=== PATIENT | female | born 1945 | race Caucasian/White ===

== ENCOUNTER → 2017-02-01 | Outpatient (CLI) | payer MEDICARE, BC ==
--- NOTE | 2017-02-01 15:59 | US ---
EXAM DESCRIPTION: Thyroid: Ultrasound CLINICAL HISTORY: ABNORMAL RESULTS OF THYROID FUNCTION STUDIES COMPARISON: None. TECHNIQUE: Transcutaneous scannin-dimensional and Doppler modes. FINDINGS: Right lobe dimensions 8.1 x 5.1 x 6.7 cm. Heterogeneous echoes. Nodule in the mid lobe measures 2.1 cm transverse and 2.2 x 1.7 cm sagittal plane. Nonvascular. Decreased vascularity throughout the lobe. No microcalcifications. Contour right lobe minimally lobular. Juxta-thyroid masses/fluid: none. Left lobe dimensions 6.0 x 3.7 x 2.7 cm. Heterogeneous echoes. Complex nodule in the lower lobe measuring 1.9 cm transverse and 1.8 x 1.6 cm in the sagittal plane. Nonvascular. Large nodule in the upper and midpole. Nodule is not vascular. Decreased vascularity in the left lobe. No microcalcifications. Contour left lobe minimally lobulated. Juxta-thyroid masses/fluid: none. Isthmus thickness 15.3 mm. Heterogeneous echoes. Complex nodule measuring 3.3 cm transverse and 2.7 cm AP; nodule is not vascular. Decreased vascularity. Contour smooth. IMPRESSION: 1. Markedly enlarged thyroid gland involving both lobes and the isthmus but particularly the right lobe. 2. Multiple nodules in the bilateral lobes and isthmus. The three largest nodules meet the imaging criteria for fine needle aspiration sampling according to RP best practice guidelines, adopted from ACR white paper and [place] 3-tiered guidelines on incidental thyroid nodules. Please see below.* 3. No discrete solid masses, cystic masses, or edema in the surrounding soft tissues. *Further evaluation by thyroid US recommended for: -Solitary incidental thyroid nodule (ITN) with high risk imaging features (locally invasive nodule or suspicious lymph nodes) -Solitary ITN of any size in pediatric patients <= 18 years of age -Solitary ITN >= 1 cm in axial plane in patients between 18 and 35 years of age -Solitary ITN >= 1.5 cm in axial plane in patients >= 35 years of age -Heterogeneous enlarged thyroid gland -ITN avid on FDG-PET or other nuclear medicine (MIBI and octreotide) scans. FNA biopsy is also recommended for PET avid nodules. 2.No f/u imaging is recommended for ITN's not meeting the above criteria. 3.For multiple thyroid nodules, the above recommendations for solitary ITN are to be applied to the largest nodule. 4.No US or f/u recommended for ITN's without high risk features in patients with limited life expectancy or significant co-morbidities, unless clinically warranted. 5.These recommendations do not apply to patients w/ increased risk for thyroid cancer or patients with symptomatic thyroid disease. Recommendations for f/u of Incidental Thyroid Nodules (ITN) found on CT, MR, NM and Extrathyroidal US are based upon the ACR white paper and [place] 3-tiered system for managing ITN's: J [facility] 2015 Feb;12(2): 143-50 Electronically signed by: Arsen Alejandre MD 02/01/2017 3:58 PM CDT
== END | disposition home or self-care (01) ==
LOC: US 09:54
PROVIDERS: ATTEND Family Medicine
DX: R94.6 Abnormal results of thyroid function studies (principal)

== ENCOUNTER → 2017-10-18 | Outpatient (CLI) | payer MEDICARE, BC | LOC: GMAJS 17:22 | PROVIDERS: ATTEND Physician Assistant | DX: R30.0 Dysuria (principal) ==

== ENCOUNTER 2020-03-10 12:39 | Emergency (ER) | payer MEDICARE ==
[2020-03-10] MEDS ORDERED: LIDOCAINE 1% 10 ML VIAL INJ ONE ×2 (12:53→13:16)
[2020-03-10] MEDS ORDERED: CHLORHEXIDINE GLUCONATE 4 % 15 ML UD TOP ONE (12:54)
[2020-03-10] MEDS ORDERED: BUPIVACAINE 0.25% INJ 30 ML VIAL INJ ONE (12:59)
[2020-03-10] MEDS ORDERED: TETANUS,DIPHTHERIA,PERTUSSIS 1 EA SYG IM ONE (12:59)
--- NOTE | 2020-03-10 13:03 | ED.PDOC ---
History of Present Illness - General Time Seen by Provider: 03/10/20 12:55 Source: patient, RN notes reviewed, Vital Signs reviewed, family Exam Limitations: no limitations - History of Present Illness Initial Comments: Pt presents to ED for left hand injury. Just [employer], she was closing a sliding glass door and the fram shut on her left 3rd and 4th fingers. Has laceration to palmar side of 3rd digit. Denies any other injuries. Unsure of last tetanus shot. Allergies/Adverse Reactions: Allergies NO KNOWN ALLERGY Allergy (Verified 03/10/20 13:07) Home Medications: Ambulatory Orders metFORMIN HCL [Glucophage] 500 mg PO BIDFD #60 tab 01/31/16 Review of Systems - Review of Systems Constitutional: Denies: fever Musculoskeletal: Denies: back pain, neck pain Skin: States: see HPI All other Systems: Reviewed and Negative Past Medical History (General) - Patient Medical History Hx Seizures: No Hx Stroke: No Hx of COPD: No Hx Congestive Heart Failure: No Hx Pacemaker: No Hx Hypertension: No Hx Diabetes: No Hx MRSA: No Family Medical History - Family History Mother Family History: Unknown Physical Exam - Physical Exam General Appearance: Alert, Comfortable, No apparent distress Comments: There is a 2 cm laceration to palmar side of left 3rd digit with no active bleeding. TTP left 4rd and 4th digits to middle and distal phalynxs. No nail injury. Cap refill < 2 seconds. Progress - Progress Progress: 03/10/20 13:27 Presents to the ED with left hand injury after getting it closed in a door. No fracture or dislocation seen on imaging. Wound was irrigated extensively. Patient refused any numbing medicine so 1 suture was placed to approximate the wound. Nonadherent dressing was applied. Discussed with patient to keep wound clean and dry and will return in 12 to 14 days for suture removal. Strict return precautions given. - Results/Orders Results/Orders: LEFT HAND CLINICAL HISTORY: 75 years Female trauma COMPARISON: None TECHNIQUE: Three images of the left hand were obtained. FINDINGS: Deformity with fragmentation of navicular bone. Well circumscribed fragments present. Possible fragmentation radial aspect lunate. No additional fractures seen. Mild bony demineralization. No erosive or lytic lesions seen. IMPRESSION: Deformity with fragmentation of navicular and lunate bones most suspicious for more remote trauma. No definite acute fracture or dislocation seen. Procedures - Laceration/Wound Repair Left Finger Wound Length (cm): 1.5 Wound's Depth, Shape: superficial, linear Wound Explored: clean Irrigated w/ Saline (cc's): 250 Suture Size/Type: 4:0, prolene Number of Sutures: 1 Progress: Pt declined digital block or anesthesia and wanted 1 suture placed with lidocaine. 1 suture placed to approximate wound. Dressing applied Departure - Departure Clinical Impression: Finger laceration Qualifiers: Encounter type: initial encounter Finger: middle finger Damage to nail status: without damage Foreign body presence: without foreign body Laterality: left Qualified Code(s): S61.213A - Laceration without foreign body of left middle finger without damage to nail, initial encounter Contusion, hand Qualifiers: Encounter type: initial encounter Laterality: left Qualified Code(s): S60.222A - Contusion of left hand, initial encounter Time of Disposition: 13:29 Disposition: Discharge to Home or Self Care Condition: Good Instructions: Laceration Repair With Stitches (DC) Diet: resume usual diet Activity: increase activity as tolerated Referrals: Rio Norman MD [Primary Care Provider] - 1-2 Weeks Home Medications: Ambulatory Orders metFORMIN HCL [Glucophage] 500 mg PO BIDFD #60 tab 01/31/16 Additional Instructions: Keep wound clean and dry. You can apply topical antibacterial ointment such as Neosporin. Return to ED in 12-14 days for suture removal.
--- NOTE | 2020-03-10 13:26 | RAD ---
EXAM DESCRIPTION: Hand,Left 3 Views CLINICAL HISTORY: 75 years Female trauma COMPARISON: None TECHNIQUE: Three images of the left hand were obtained. FINDINGS: Deformity with fragmentation of navicular bone. Well circumscribed fragments present. Possible fragmentation radial aspect lunate. No additional fractures seen. Mild bony demineralization. No erosive or lytic lesions seen. IMPRESSION: Deformity with fragmentation of navicular and lunate bones most suspicious for more remote trauma. No definite acute fracture or dislocation seen. Electronically signed by: Olya Bo MD 03/10/2020 1:25 PM [facility]
[2020-03-10] MEDS ORDERED: NEOMYCIN-BACITRACIN-POLYMYXIN 0.9 GM UD TOP ONE (13:58)
[2020-03-10 14:08] VITALS: BP 178/91; TEMP 96.9; O2SAT 96
== END 2020-03-10 14:08 | disposition home or self-care (01) ==
LOC: ER 12:39
DX: S61.213A Laceration without foreign body of left middle finger without damage to nail, initial encounter (principal); W23.0XXA Caught, crushed, jammed, or pinched between moving objects, initial encounter; Y92.9 Unspecified place or not applicable